=== PATIENT | male | born 1975 | race Two or more races ===

== ENCOUNTER 2022-11-06 07:02 | Day surgery (SDC) | payer OTHER ==
[~2022-11-06] VITALS: Ht 177.8 cm; Wt 70.3 kg
== END 2022-11-06 18:20 | disposition home or self-care (01) ==
LOC: CIR.AMB 07:02
PROVIDERS: ATTEND Colon & Rectal Surgery
DX: K64.2 Third degree hemorrhoids (principal); K64.4 Residual hemorrhoidal skin tags; K64.8 Other hemorrhoids; K59.09 Other constipation; Z87.891 Personal history of nicotine dependence; Z20.822 Contact with and (suspected) exposure to COVID-19